=== PATIENT | female | born 1980 | race Caucasian/White ===

== ENCOUNTER 2017-06-14 06:03 | Emergency (ER) | payer OTHER, SELFPAY ==
[2017-06-14 06:04] VITALS: BP 112/65; PULSE 44; RESP 20; TEMP 36.6; O2SAT 98; BMI 28.1
--- NOTE | 2017-06-14 06:13 | XR_ITS ---
XR pelvis 1-2V HISTORY: Pain ITS.REASON: syncope ORDERING PHYSICIAN: Lino Cunningham MD PATIENT AGE: 37 years COMPARISON: None FINDINGS: No fracture or dislocation is evident. No significant degenerative change. No lytic or blastic change. The SI joints have an unremarkable appearance. Unremarkable soft tissues. There are multiple pelvic phleboliths IMPRESSION: No acute finding
--- NOTE | 2017-06-14 06:13 | CT_ITS ---
CT head/brain wo con HISTORY: Syncope with headache and nausea ITS.REASON: pain ORDERING PHYSICIAN: Lino Cunningham MD PATIENT AGE: 37 years COMPARISON: None TECHNIQUE: Axial images obtained without contrast. Brain and bone windows reviewed. FINDINGS: No midline shift, mass effect, intracranial hemorrhage, hydrocephalus, or extra-axial fluid collection is evident. The calvarium has an unremarkable appearance. No mastoid effusion. No sinus air-fluid levels.. There is moderate leftward nasal septal deviation IMPRESSION: No acute intracranial finding
--- NOTE | 2017-06-14 06:13 | CT_ITS ---
CT abdomen pelvis wo con CLINICAL INDICATION: Abdominal pain with nausea ITS.REASON: pain ORDERING PHYSICIAN: Lino Cunningham MD PATIENT AGE: 37 years COMPARISON: None TECHNIQUE: Axial images obtained with sagittal and coronal reformats. PROCEDURE: Oral Contrast: None IV Contrast: None . FINDINGS: Lung bases are clear. There is minimal thickening of the pericardium anteriorly nonspecific. No focal liver lesion. No radio opaque gallstones. The spleen, adrenal glands, pancreas, and kidneys have an unremarkable appearance. No intestinal obstruction or free air. No evidence of appendicitis or diverticulitis. There are mildly thickened small bowel loops in the pelvis which may represent enteritis There is a small amount fluid in cul-de-sac nonspecific. The uterus is slightly bulky. No acute bony anomalies. IMPRESSION: 1. There are some mildly thickened small bowel loops in the pelvis which could be related to enteritis 2. Slightly bulky uterus with small amount fluid in the cul-de-sac. 3. Otherwise negative CT abdomen pelvis without contrast
--- NOTE | 2017-06-14 06:13 | CT_ITS ---
CT cervical spine wo con INDICATION: Neck pain, syncope, headache ITS.REASON: pain ORDERING PHYSICIAN: Lino Cunningham MD PATIENT AGE: 37 years COMPARISON: None TECHNIQUE: Axial images are obtained without contrast. Sagittal and coronal reformatted images are reviewed as well. FINDINGS: There is normal alignment. No fracture or dislocation. There is mild degenerative disc disease at C5-C6 with bulging disc eccentric towards the left with mild left lateral recess narrowing. No bony destructive process. Lung apices are clear. No prevertebral soft tissue swelling. There are scattered small lymph nodes in the neck. Mild right TMJ arthritic changes IMPRESSION: 1. No acute fracture. 2. Mild degenerative disc disease with bulging disc at C5-C6 with left lateral recess narrowing
--- NOTE | 2017-06-14 06:13 | XR_ITS ---
XR chest AP HISTORY: ITS.REASON: syncope ORDERING PHYSICIAN: Lino Cunningham MD PATIENT AGE: 37 years COMPARISON: None available FINDINGS: The cardiomediastinal silhouette and pulmonary vascularity are within normal limits. The lungs are clear without infiltrates, suspicious nodules, or pleural effusions. No acute bony abnormalities. IMPRESSION: Negative chest, no acute finding
[2017-06-14 06:21] VITALS: BP 112/65; PULSE 46; O2SAT 99
[2017-06-14 06:28] LABS: Basophils # 0.1 K/mm3 (0-0.2); Basophils % 0.7 % (0.1-2.0); Eosinophils # 0.6 K/mm3 (0.0-0.4); Eosinophils % 8.2 % (0.1-12.0); Hematocrit 42.9 % (37.0-47.0); Hemoglobin 13.4 g/dL (12.2-16.2); Lymphocytes # 3.2 K/mm3 (0.7-4.5); Lymphocytes % 44.4 K/mm3 (10-50); Mean Corpuscular HGB Conc 31.2 g/dL (31.8-35.4); Mean Corpuscular Hemoglobin 30.1 pg (27.0-31.2); Mean Corpuscular Volume 96.7 fl (81-99); Mean Platelet Volume 7.7 fl (7.4-10.4); Monocytes # 0.4 K/mm3 (0.1-1.0); Neutrophils % 41.7 % (37.0-80.0); Platelet Count 287 K/mm3 (142-424); Red Blood Count 4.44 M/mm3 (4.20-5.40); Red Cell Distribution Width 12.8 % (11.5-17.5); White Blood Count 7.2 K/mm3 (4.8-10.8)
[2017-06-14 06:44] LABS: HCG Qualitative, Serum Negative (Negative)
--- NOTE | 2017-06-14 06:55 | [facility].EDNVD ---
ED Disposition Clinical Impression: Enteritis, Vasovagal episode, Sinus bradycardia Disposition: Home, Self-Care Condition on Discharge: Good Instructions: DI for Vomiting -- Adult Additional Instructions: stop meds and fluids and see pcp for follow up Prescriptions: Ondansetron HCl [Zofran 4mg Tab] 4 mg PO TID #20 tab - Critical Care Critical Care Time: No Attestation: On 06/14/17, the high probability of a clinically significant, sudden or life threatening deterioration of the following system(s) required my full and direct attention, intervention and personal management. The time I documented below is in addition to time spent performing reported procedures but includes the following listed in this critical care notation. Medical Decision Making - Medical Records Medical records reviewed: Yes: I reviewed the patient's medical records. Vital Signs: 06/14/17 06:04 06/14/17 06:21 06/14/17 07:52 Temperature 98 F Temperature Source Oral Pulse Rate [Right Radial] 44 L 46 L 48 L Respiratory Rate 20 18 Blood Pressure [Right Arm] 112/65 112/65 130/64 Blood Pressure Mean [Right Arm] 80 80 86 Blood Pressure Source [Right Arm] Automatic Cuff Automatic Cuff Automatic Cuff Blood Pressure Position [Right Arm] Supine Sitting 02 Sat by Pulse Oximetry 98 99 100 Oxygen Delivery Method Room Air Room Air - Lab Data Lab results reviewed: Yes: I reviewed the patient's lab results. Lab Results 06/14/17 06:15: WBC 7.2, RBC 4.44, Hgb 13.4, Hct 42.9, MCV 96.7, MCH 30.1, MCHC 31.2 L, RDW 12.8, Plt Count 287, MPV 7.7, Neut % (Auto) 41.7, Lymph % (Auto) 44.4, [place] % (Auto) 5.0, Eos % (Auto) 8.2, Baso % (Auto) 0.7, Neut # (Auto) 3.0, Lymph # (Auto) 3.2, [place] # (Auto) 0.4, Eos # (Auto) 0.6 H, Baso # (Auto) 0.1 06/14/17 06:15: Sodium 142, Potassium 3.4 L, Chloride 107, Carbon Dioxide 26, Anion Gap 12.4, BUN 15, Creatinine 1.04 H, Estimated Creat Clear 97, Estimated GFR 59, Est GFR ( Amer) 72, Glucose 128 H, Calcium 8.1 L, Total Bilirubin 0.4, AST 16, ALT 27, Alkaline Phosphatase 68, Total Creatine Kinase 152, CK-MB (CK-2) 1.6, CK-MB (CK-2) Rel Index 1.1, Troponin I < 0.02, Total Protein 6.9, Albumin 3.8, Globulin 3.1, Albumin/Globulin Ratio 1.2, Amylase 66, Lipase 238 06/14/17 06:15: Serum HCG, Qual Negative 06/14/17 06:15: ESR 4 Result diagrams: 06/14/17 06:15 06/14/17 06:15 Orders (Tests/Meds): ED MEDICATIONS Discontinued Medications Generic Name Dose Route Start Last Admin Trade Name Freq PRN Reason Stop Dose Admin Sodium Chloride 1,000 mls @ 999 mls/hr 06/14/17 06:30 06/14/17 06:26 Sod Chlor 0.9% 1000ml Bag IV 06/14/17 07:30 999 mls/hr .Q1H1M FAVIO Administration Sodium Chloride 1,000 mls @ 999 mls/hr 06/14/17 08:00 06/14/17 07:59 Sod Chlor 0.9% 1000ml Bag IV 06/14/17 09:00 999 mls/hr .Q1H1M FAVIO Administration Morphine Sulfate 4 mg 06/14/17 07:45 06/14/17 07:50 Morphine 4mg/Ml Syringe IV 06/14/17 07:46 4 mg ONCE ONE Administration Ondansetron HCl 4 mg 06/14/17 07:39 06/14/17 07:39 Zofran 4mg/2ml Vial IV 06/14/17 07:40 4 mg ONCE ONE Administration ORDERS Category Date Time Status Urinalysis and Microscopic Stat Lab 06/14/17 06:13 Ordered - Radiology Data #1 Image(s): Clavicle, Pelvis Image Reviewed: Yes I reviewed the patient's radiology image Preliminary Findings: No Fracture Seen - CT Data CT Scan: Head, C-Spine, Abdomen, Pelvis Time Received: 07:[address] Reviewed: Yes: I have viewed the radiologist's interpretation Preliminary Findings: Normal/NAD - ECG Data Tracing #1 I reviewed this ECG and interpreted as documented below: Arrhythmias present: sinus kevin Ischemic changes: non-specific ST-T wave changes - Andrey Inquiry Pt receiving controlled substance: No Nausea/Vomiting/Diarrhea HPI - General Chief complaint: Altered Mental Status Stated complaint: altered mental status Time Seen by Provider: 06/14/17 06:
[2017-06-14 06:57] LABS: Alanine Aminotransferase 27 U/L (12-78); Albumin Level 3.8 gm/dL (3.4-5.0); Albumin/Globulin Ratio 1.2 (1.1-1.8); Alkaline Phosphatase 68 U/L (46-116); Amylase 66 U/L (25-125); Anion Gap 12.4 mEq/L (5-15); Aspartate Amino Transferase 16 U/L (15-37); Bilirubin,Total 0.4 mg/dL (0.2-1.0); Blood Urea Nitrogen 15 mg/dL (7-18); CKMB Relative Index 1.1 U/L (0-4.0); Calcium 8.1 mg/dL (8.5-10.1); Carbon Dioxide 26 mmol/L (21.0-32.0); Chloride 107 mmol/L (98-107); Creatine Kinase 152 U/L (26-192); Creatine Kinase MB 1.6 mg/ml (0.0-3.6); Creatinine Clearance Estimated 97 mL/min (0-300); Creatinine,Serum 1.04 mg/dL (0.55-1.02); Estimated Glomerular Filt Rate 59 ml/min (>60); GFR (African American) 72 ML/MIN (>60); Globulin 3.1 gm/dl (1.3-3.2); Glucose 128 mg/dL (74-106); Lipase 238 u/L (73-393); Potassium 3.4 mmoL/L (3.5-5.1); Sodium 142 mmol/L (136-145); Total Protein,Serum 6.9 gm/dL (6.4-8.2); Troponin I < 0.02 ng/ml (0.00-0.06)
[2017-06-14 07:52] VITALS: BP 130/64; PULSE 48; RESP 18; O2SAT 100
[2017-06-14 08:27] LABS: Erythrocyte Sedimentation Rate 4 mm/hr (0-20)
[2017-06-14 09:44] VITALS: BP 112/65; PULSE 48; RESP 18; TEMP 36.4; O2SAT 98
== END 2017-06-14 09:44 | disposition home or self-care (01) ==
PROVIDERS: Emergency Provider Emergency Medicine
DX: K52.9 Noninfective gastroenteritis and colitis, unspecified (principal); R55 Syncope and collapse
CPT/HCPCS: 70450; 71045; 72125; 72170; 74176; 80053; 82150; 82550; 82553; 83690; 84484; 84703; 85025; 85651; 93005; 96365; 96366; 96374; 96375; 99283; 99284; J2405

== ENCOUNTER → 2022-09-18 09:34 | Outpatient (CLI) | payer MEDICAID, SELFPAY ==
[2022-09-18 10:17] LABS: Basophils % 0.8 % (0.1-2.0); Eosinophils # 0.1 K/mm3 (0.0-0.4); Hematocrit 40.8 % (37.0-47.0); Lymphocytes # 1.5 K/mm3 (0.7-4.5); Lymphocytes % 34.5 % (10-50); Mean Corpuscular HGB Conc 31.8 g/dL (31.8-35.4); Mean Corpuscular Hemoglobin 30.6 pg (27.0-31.2); Monocytes # 0.3 K/mm3 (0.1-1.0); Monocytes % 6.6 % (1.7-9.3); Neutrophils # 2.4 K/mm3 (1.8-7.8); Neutrophils % 55.1 % (37.0-80.0); Platelet Count 345 K/mm3 (142-424); Red Blood Count 4.25 M/mm3 (4.20-5.40); White Blood Count 4.3 K/mm3 (4.8-10.8)
== END ==
PROVIDERS: Visit Provider Nurse Practitioner Obstetrics & Gynecology
DX: N92.6 Irregular menstruation, unspecified (principal)
CPT/HCPCS: 36415; 85025